=== PATIENT | female | born 1940 ===

== ENCOUNTER 2017-12-10 20:30 | Inpatient (IN) ==
[2017-12-10] MEDS: SODIUM CHLORIDE 0.9% 1,000 ML IV SCH (23:00)
[2017-12-10] MEDS ORDERED: ACETAMINOPHEN 325 MG TABLET PO PRN (23:29)
[2017-12-10] MEDS ORDERED: GLUCAGON 1 MG VIAL IM PRN ×2 (23:29→23:46)
[2017-12-10] MEDS ORDERED: DEXTROSE 50% 25 GM/50 ML VIAL IV PRN (23:46)
[2017-12-11 01:51] LABS: Apearance,Urine CLOUDY (Clear); Bacteria,Urine Many /HPF (Few); Bilirubin,Urine Negative (Negative); Blood, Urine Small mg/dL (Negative); Glucose,Urine (UA) Negative (Negative); Ketones,Urine Negative (Negative); Mucus,Urine Occasional /LPF (Occasional); Nitrite,Urine Negative (Negative); Protein,Urine 100 MG/DL; RBC,Urine 8 /HPF (0-4); Squamous Epithelial Cell,Urine Occasional /HPF (0-10); Urine Color Red (Yellow); Urine Specific Gravity 1.008 (1.001-1.035); Urine Urobilinogen < 2.0 EU/DL (0.2-1.0); WBC,Urine 47 /HPF (0-6)
[2017-12-11] MEDS ORDERED: MORPHINE 4 MG/1 ML VIAL IV PRN (03:20)
[2017-12-11] MEDS: LEVOTHYROXINE 50 MCG TABLET PO SCH (06:04)
[2017-12-11 06:06] LABS: Calcium 7.7 MG/DL (8.5-10.1); Osmolality,Calculated 295.7 MOS/KG (273-304); Potassium 4.3 MMOL/L (3.5-5.1)
[2017-12-11 06:19] LABS: Basophils % 0.2 % (0.0-0.8); Eosinophils % 0.1 % (0.00-10.9); Hematocrit 35.8 VOL% (35.7-47.0); Immature Granulocytes % 2.1 %; Immature Granulocytes Absolute 0.18 #; Lymphocytes # 0.4 10*3/uL (1.4-4.0); Mean Corpuscular HGB Conc 33.2 GM/DL (32-36); Mean Corpuscular Hemoglobin 30 PG (27-34); Mean Corpuscular Volume 88.6 FL (87-102); Mean Platelet Volume 11.2 FL (9.6-12.0); Monocytes # 0.2 10*3/uL (0.11-0.8); Monocytes % 2.2 % (1.7-12.7); Neutrophils # 7.7 10*3/uL (1.4-7.4); Neutrophils % 90.4 % (38.7-73.9); Platelet Count 107 T/CUMM (130-400); Red Blood Count 4.04 MC/CUMM (3.8-5.5); White Blood Count 8.5 T/CUMM (4-12)
[2017-12-11 06:20] LABS: Hemoglobin 11.9 GM/DL (12.0-16.0)
[2017-12-11 06:26] LABS: Hypochromasia 1+; Platelet Estimate Decreased
[2017-12-11] MEDS: DEXTROSE 50% 25 GM/50 ML VIAL IV PRN (08:25)
[2017-12-11] MEDS: INSULIN REGULAR 100 UNIT/ML SUBCUT SCH ×4 (08:27→20:24)
[2017-12-11] MEDS: SODIUM CHLORIDE 0.9% 1,000 ML IV SCH (08:28)
[2017-12-11] MEDS ORDERED: GABAPENTIN 300 MG CAPSULE PO SCH (09:00)
[2017-12-11] MEDS: PANTOPRAZOLE 40 MG TABLET PO SCH (10:40)
[2017-12-11] MEDS: METOPROLOL SUCCINATE XL 50 MG TABLET PO SCH (10:40)
[2017-12-11] MEDS: amLODIPine 10 MG TABLET PO SCH (10:41)
[2017-12-11] MEDS: ENOXAPARIN 30 MG/0.3 ML SYRINGE SUBCUT SCH (10:41)
[2017-12-11] MEDS: CALCIUM (CARBONATE)/VITAMIN D 600 MG-400 UNIT TABLET PO SCH ×2 (10:41→20:14)
[2017-12-11] MEDS ORDERED: hydrALAZINE 20 MG/1 ML VIAL IV PRN (10:55)
[2017-12-11 11:52] LABS: Creatinine,Urine Random < 13 MG/DL; Total Protein,Urine Random 116 MG/DL; Urea Nitrogen, Urine Random 202 MG/DL
[2017-12-11] MEDS: cefTRIAXone 1,000 MG in SYRINGE 1 EACH IV SCH (11:56)
[2017-12-11] MEDS: ZINC OXIDE PASTE 113 GM TUBE TOP SCH ×2 (16:49→20:14)
[2017-12-11] MEDS: DONEPEZIL 10 MG TABLET PO SCH (20:14)
[2017-12-12] MEDS: SODIUM CHLORIDE 0.9% 1,000 ML IV SCH (03:25)
[2017-12-12] MEDS: LEVOTHYROXINE 50 MCG TABLET PO SCH (05:33)
[2017-12-12] MEDS: INSULIN REGULAR 100 UNIT/ML SUBCUT SCH ×4 (08:48→21:10)
[2017-12-12] MEDS: PANTOPRAZOLE 40 MG TABLET PO SCH (08:49)
[2017-12-12] MEDS: CALCIUM (CARBONATE)/VITAMIN D 600 MG-400 UNIT TABLET PO SCH ×2 (08:49→21:10)
[2017-12-12] MEDS: METOPROLOL SUCCINATE XL 50 MG TABLET PO SCH (08:49)
[2017-12-12] MEDS: amLODIPine 10 MG TABLET PO SCH (08:49)
[2017-12-12] MEDS: ENOXAPARIN 30 MG/0.3 ML SYRINGE SUBCUT SCH (08:49)
[2017-12-12] MEDS: ZINC OXIDE PASTE 113 GM TUBE TOP SCH ×2 (08:50→21:10)
[2017-12-12] MEDS: ONDANSETRON 4 MG/2 ML VIAL IV PRN ×2 (10:46→17:17)
[2017-12-12] MEDS: cefTRIAXone 1,000 MG in SYRINGE 1 EACH IV SCH (12:44)
[2017-12-12] MEDS: DONEPEZIL 10 MG TABLET PO SCH (21:10)
[2017-12-13] MEDS: SODIUM CHLORIDE 0.9% 1,000 ML IV SCH ×2 (00:33→07:21)
[2017-12-13 05:04] LABS: Albumin 1.7 G/DL (3.4-5.0); Calcium 6.9 MG/DL (8.5-10.1); Potassium 4.7 MMOL/L (3.5-5.1)
[2017-12-13 05:44] LABS: Basophils % 0.3 % (0.0-0.8); Eosinophils % 0.2 % (0.00-10.9); Hematocrit 33.3 VOL% (35.7-47.0); Hemoglobin 10.9 GM/DL (12.0-16.0); Immature Granulocytes % 2.4 %; Immature Granulocytes Absolute 0.35 #; Lymphocytes # 0.6 10*3/uL (1.4-4.0); Lymphocytes % 4.1 % (21.3-54.2); Mean Corpuscular HGB Conc 32.7 GM/DL (32-36); Mean Corpuscular Hemoglobin 30 PG (27-34); Mean Corpuscular Volume 91.2 FL (87-102); Mean Platelet Volume 11.5 FL (9.6-12.0); Monocytes # 0.3 10*3/uL (0.11-0.8); Monocytes % 2.3 % (1.7-12.7); NRBC # 0.04 10*3/uL; Neutrophils # 13.1 10*3/uL (1.4-7.4); Neutrophils % 90.7 % (38.7-73.9); Platelet Count 86 T/CUMM (130-400); Red Blood Count 3.65 MC/CUMM (3.8-5.5); Red Cell Distribution Width 16.9 % (9.3-17.3); White Blood Count 14.5 T/CUMM (4-12)
[2017-12-13] MEDS: LEVOTHYROXINE 50 MCG TABLET PO SCH (07:10)
[2017-12-13] MEDS: DEXTROSE 50% 25 GM/50 ML VIAL IV PRN ×2 (07:26→12:06)
[2017-12-13 07:48] LABS: Band Neutrophils 7 % (0-10); Lymphocytes 5 % (20-55); Metamyelocytes 2 %; Segmented Neutrophils 84 % (50-85)
[2017-12-13 07:49] LABS: Platelet Estimate Decreased; Total Cells Counted 100
[2017-12-13] MEDS: CALCIUM (CARBONATE)/VITAMIN D 600 MG-400 UNIT TABLET PO SCH ×2 (09:24→20:43)
[2017-12-13] MEDS: amLODIPine 10 MG TABLET PO SCH (09:24)
[2017-12-13] MEDS: ENOXAPARIN 30 MG/0.3 ML SYRINGE SUBCUT SCH (09:24)
[2017-12-13] MEDS: METOPROLOL SUCCINATE XL 50 MG TABLET PO SCH (09:24)
[2017-12-13] MEDS: PANTOPRAZOLE 40 MG TABLET PO SCH (09:24)
[2017-12-13] MEDS: INSULIN REGULAR 100 UNIT/ML SUBCUT SCH ×4 (09:25→20:43)
[2017-12-13] MEDS: ZINC OXIDE PASTE 113 GM TUBE TOP SCH ×2 (09:25→20:43)
[2017-12-13] MEDS: cefTRIAXone 1,000 MG in SYRINGE 1 EACH IV SCH (12:07)
[2017-12-13] MEDS: DEXTROSE 5% NACL 0.9% 1,000 ML IV SCH (16:00)
[2017-12-13] MEDS: DONEPEZIL 10 MG TABLET PO SCH (20:42)
[2017-12-14 04:21] LABS: Basophils % 0.2 % (0.0-0.8); Eosinophils % 0.2 % (0.00-10.9); Hematocrit 25.7 VOL% (35.7-47.0); Hemoglobin 9.8 GM/DL (12.0-16.0); Immature Granulocytes % 4.1 %; Immature Granulocytes Absolute 0.41 #; Lymphocytes # 0.6 10*3/uL (1.4-4.0); Lymphocytes % 5.6 % (21.3-54.2); Mean Corpuscular HGB Conc 38.1 GM/DL (32-36); Mean Corpuscular Hemoglobin 40 PG (27-34); Mean Corpuscular Volume 105.3 FL (87-102); Mean Platelet Volume 11.5 FL (9.6-12.0); Monocytes # 0.4 10*3/uL (0.11-0.8); NRBC # 0.02 10*3/uL; Neutrophils # 8.5 10*3/uL (1.4-7.4); Neutrophils % 85.9 % (38.7-73.9); Red Blood Count 2.44 MC/CUMM (3.8-5.5); Red Cell Distribution Width 23.7 % (9.3-17.3); White Blood Count 9.9 T/CUMM (4-12)
[2017-12-14 04:44] LABS: Albumin 1.5 G/DL (3.4-5.0); Calcium 7.3 MG/DL (8.5-10.1); Osmolality,Calculated 310.8 MOS/KG (273-304); Potassium 4.8 MMOL/L (3.5-5.1)
[2017-12-14 05:05] LABS: Platelet Count 70 T/CUMM (130-400)
[2017-12-14] MEDS: DEXTROSE 5% NACL 0.9% 1,000 ML IV SCH (06:00)
[2017-12-14] MEDS: LEVOTHYROXINE 50 MCG TABLET PO SCH (06:30)
[2017-12-14] MEDS: ENOXAPARIN 30 MG/0.3 ML SYRINGE SUBCUT SCH (09:01)
[2017-12-14] MEDS: CALCIUM (CARBONATE)/VITAMIN D 600 MG-400 UNIT TABLET PO SCH ×2 (09:02→21:17)
[2017-12-14] MEDS: ZINC OXIDE PASTE 113 GM TUBE TOP SCH ×2 (09:02→21:18)
[2017-12-14] MEDS: amLODIPine 10 MG TABLET PO SCH (09:02)
[2017-12-14] MEDS: PANTOPRAZOLE 40 MG TABLET PO SCH (09:02)
[2017-12-14] MEDS: INSULIN REGULAR 100 UNIT/ML SUBCUT SCH ×4 (09:02→21:18)
[2017-12-14] MEDS: METOPROLOL SUCCINATE XL 50 MG TABLET PO SCH (09:02)
[2017-12-14 09:24] LABS: Lymphocytes 4 % (20-55); Platelet Estimate Decreased; Polychromasia Slight; Segmented Neutrophils 92 % (50-85); Total Cells Counted 100
[2017-12-14] MEDS: cefTRIAXone 1,000 MG in SYRINGE 1 EACH IV SCH (12:01)
[2017-12-14] MEDS: PIPERACILLIN/TAZOBACTAM 3,375 MG in SODIUM CHLORIDE 0.9% 100 ML IV SCH (14:54)
[2017-12-14] MEDS: DONEPEZIL 10 MG TABLET PO SCH (21:18)
[2017-12-15] MEDS: DEXTROSE 5% NACL 0.9% 1,000 ML IV SCH ×2 (00:11→11:32)
[2017-12-15] MEDS: PIPERACILLIN/TAZOBACTAM 3,375 MG in SODIUM CHLORIDE 0.9% 100 ML IV SCH (00:45)
[2017-12-15 04:40] LABS: Albumin 1.5 G/DL (3.4-5.0); Osmolality,Calculated 308.7 MOS/KG (273-304); Potassium 4.5 MMOL/L (3.5-5.1)
[2017-12-15 05:25] LABS: Basophils % 0.3 % (0.0-0.8); Eosinophils % 0.3 % (0.00-10.9); Immature Granulocytes % 3.7 %; Immature Granulocytes Absolute 0.57 #; Lymphocytes # 0.8 10*3/uL (1.4-4.0); Lymphocytes % 5.4 % (21.3-54.2); Mean Corpuscular HGB Conc 32.1 GM/DL (32-36); Mean Corpuscular Hemoglobin 30 PG (27-34); Mean Corpuscular Volume 93.4 FL (87-102); Mean Platelet Volume 11.5 FL (9.6-12.0); Monocytes # 0.4 10*3/uL (0.11-0.8); Monocytes % 2.3 % (1.7-12.7); NRBC # 0.02 10*3/uL; Neutrophils # 13.5 10*3/uL (1.4-7.4); Platelet Count 73 T/CUMM (130-400); Red Blood Count 3.64 MC/CUMM (3.8-5.5); Red Cell Distribution Width 17.3 % (9.3-17.3); White Blood Count 15.3 T/CUMM (4-12)
[2017-12-15 05:26] LABS: Hemoglobin 10.9 GM/DL (12.0-16.0)
[2017-12-15 05:35] LABS: Hypochromasia 1+; Lymphocytes 5 % (20-55); Platelet Estimate Decreased; Segmented Neutrophils 93 % (50-85); Total Cells Counted 100
[2017-12-15] MEDS: LEVOTHYROXINE 50 MCG TABLET PO SCH (06:10)
[2017-12-15] MEDS: INSULIN REGULAR 100 UNIT/ML SUBCUT SCH ×4 (08:27→21:19)
[2017-12-15] MEDS ORDERED: MEROPENEM 500 MG in SYRINGE 1 EACH IV SCH (11:30)
[2017-12-15] MEDS: DEXTROSE 5% NACL 0.45% 1,000 ML IV SCH ×2 (12:27→22:16)
[2017-12-15] MEDS: ENOXAPARIN 30 MG/0.3 ML SYRINGE SUBCUT SCH (12:28)
[2017-12-15] MEDS: CALCIUM (CARBONATE)/VITAMIN D 600 MG-400 UNIT TABLET PO SCH ×3 (12:29→21:18)
[2017-12-15] MEDS: METOPROLOL SUCCINATE XL 50 MG TABLET PO SCH (12:29)
[2017-12-15] MEDS: PANTOPRAZOLE 40 MG TABLET PO SCH (12:29)
[2017-12-15] MEDS: amLODIPine 10 MG TABLET PO SCH (12:29)
[2017-12-15] MEDS: ZINC OXIDE PASTE 113 GM TUBE TOP SCH ×2 (12:30→21:20)
[2017-12-15] MEDS: ERTAPENEM 500 MG in SODIUM CHLORIDE 0.9% 100 ML IV SCH (14:12)
[2017-12-15] MEDS: DONEPEZIL 10 MG TABLET PO SCH ×2 (21:17→21:20)
[2017-12-16] MEDS: LEVOTHYROXINE 50 MCG TABLET PO SCH (06:34)
[2017-12-16] MEDS: INSULIN REGULAR 100 UNIT/ML SUBCUT SCH ×4 (07:44→21:20)
[2017-12-16 07:58] LABS: Osmolality,Calculated 313.7 MOS/KG (273-304)
[2017-12-16 08:35] LABS: Hematocrit 40.7 VOL% (35.7-47.0); Lymphocytes % 4.4 % (21.3-54.2); Mean Corpuscular HGB Conc 32.2 GM/DL (32-36); Mean Corpuscular Hemoglobin 30 PG (27-34); Mean Corpuscular Volume 93.8 FL (87-102); Mean Platelet Volume 12.2 FL (9.6-12.0); Neutrophils % 89.4 % (38.7-73.9); Platelet Count 77 T/CUMM (130-400); Red Blood Count 4.34 MC/CUMM (3.8-5.5); Red Cell Distribution Width 17.4 % (9.3-17.3)
[2017-12-16 08:36] LABS: Basophils # 0.1 10*3/uL (0.0-0.2); Basophils % 0.4 % (0.0-0.8); Eosinophils # 0.1 10*3/uL (0.0-0.87); Eosinophils % 0.3 % (0.00-10.9); Immature Granulocytes % 3.5 %; Immature Granulocytes Absolute 0.78 #; Monocytes # 0.4 10*3/uL (0.11-0.8); Neutrophils # 20.1 10*3/uL (1.4-7.4)
[2017-12-16 08:37] LABS: Hemoglobin 13.1 GM/DL (12.0-16.0); White Blood Count 22.4 T/CUMM (4-12)
[2017-12-16 08:58] LABS: Band Neutrophils 1 % (0-10); Burr Cells Slight; Lymphocytes 4 % (20-55); Ovalocytes Slight; Platelet Estimate Decreased; Segmented Neutrophils 94 % (50-85); Total Cells Counted 100
[2017-12-16] MEDS: ENOXAPARIN 30 MG/0.3 ML SYRINGE SUBCUT SCH (09:16)
[2017-12-16] MEDS: CALCIUM (CARBONATE)/VITAMIN D 600 MG-400 UNIT TABLET PO SCH ×2 (09:19→21:20)
[2017-12-16] MEDS: PANTOPRAZOLE 40 MG TABLET PO SCH (09:19)
[2017-12-16] MEDS: ZINC OXIDE PASTE 113 GM TUBE TOP SCH ×2 (09:19→21:22)
[2017-12-16] MEDS: METOPROLOL SUCCINATE XL 50 MG TABLET PO SCH (09:19)
[2017-12-16] MEDS: amLODIPine 10 MG TABLET PO SCH (09:19)
[2017-12-16] MEDS: ERTAPENEM 500 MG in SODIUM CHLORIDE 0.9% 100 ML IV SCH (14:48)
[2017-12-16] MEDS: DEXTROSE 5% NACL 0.45% 1,000 ML IV SCH (18:02)
[2017-12-16] MEDS: DONEPEZIL 10 MG TABLET PO SCH (21:20)
[2017-12-17] MEDS: DEXTROSE 5% NACL 0.45% 1,000 ML IV SCH ×2 (01:24→18:01)
[2017-12-17] MEDS: LEVOTHYROXINE 50 MCG TABLET PO SCH (06:10)
[2017-12-17 06:18] LABS: Calcium 7.8 MG/DL (8.5-10.1); Osmolality,Calculated 310.8 MOS/KG (273-304); Potassium 3.8 MMOL/L (3.5-5.1)
[2017-12-17 06:22] LABS: Basophils # 0.1 10*3/uL (0.0-0.2); Basophils % 0.3 % (0.0-0.8); Eosinophils # 0.1 10*3/uL (0.0-0.87); Eosinophils % 0.5 % (0.00-10.9); Hematocrit 34.2 VOL% (35.7-47.0); Hemoglobin 11.2 GM/DL (12.0-16.0); Immature Granulocytes % 2.9 %; Immature Granulocytes Absolute 0.52 #; Lymphocytes # 0.7 10*3/uL (1.4-4.0); Lymphocytes % 3.6 % (21.3-54.2); Mean Corpuscular HGB Conc 32.7 GM/DL (32-36); Mean Corpuscular Hemoglobin 30 PG (27-34); Mean Corpuscular Volume 92.9 FL (87-102); Mean Platelet Volume 12.3 FL (9.6-12.0); Monocytes # 0.4 10*3/uL (0.11-0.8); Neutrophils # 16.5 10*3/uL (1.4-7.4); Neutrophils % 90.7 % (38.7-73.9); Platelet Count 56 T/CUMM (130-400); Red Blood Count 3.68 MC/CUMM (3.8-5.5); Red Cell Distribution Width 17.6 % (9.3-17.3); White Blood Count 18.2 T/CUMM (4-12)
[2017-12-17 06:35] LABS: Band Neutrophils 2 % (0-10); Eosinophils 1 % (0-10); Metamyelocytes 2 %; Platelet Estimate Decreased; Segmented Neutrophils 93 % (50-85); Total Cells Counted 100
[2017-12-17 06:36] LABS: Anisocytosis 1+; Burr Cells Few; Macrocytosis 1+; Polychromasia 1+
[2017-12-17] MEDS: INSULIN REGULAR 100 UNIT/ML SUBCUT SCH ×4 (09:29→21:03)
[2017-12-17] MEDS ORDERED: BISACODYL 10 MG SUPP RECTAL PRN (10:03)
[2017-12-17] MEDS: CALCIUM (CARBONATE)/VITAMIN D 600 MG-400 UNIT TABLET PO SCH ×2 (10:03→21:03)
[2017-12-17] MEDS: PANTOPRAZOLE 40 MG TABLET PO SCH (10:04)
[2017-12-17] MEDS: amLODIPine 10 MG TABLET PO SCH (10:04)
[2017-12-17] MEDS: METOPROLOL SUCCINATE XL 50 MG TABLET PO SCH (10:04)
[2017-12-17] MEDS: ENOXAPARIN 30 MG/0.3 ML SYRINGE SUBCUT SCH (10:04)
[2017-12-17] MEDS ORDERED: FUROSEMIDE 40 MG/4 ML VIAL IV ONE (10:40)
[2017-12-17] MEDS: ZINC OXIDE PASTE 113 GM TUBE TOP SCH ×2 (11:35→21:04)
[2017-12-17] MEDS: ERTAPENEM 500 MG in SODIUM CHLORIDE 0.9% 100 ML IV SCH (12:10)
[2017-12-17] MEDS: DONEPEZIL 10 MG TABLET PO SCH (21:04)
[2017-12-18] MEDS: DEXTROSE 5% NACL 0.45% 1,000 ML IV SCH ×2 (03:13→19:07)
[2017-12-18] MEDS: LEVOTHYROXINE 50 MCG TABLET PO SCH (06:07)
[2017-12-18 07:04] LABS: Basophils % 0.2 % (0.0-0.8); Eosinophils # 0.2 10*3/uL (0.0-0.87); Eosinophils % 1.2 % (0.00-10.9); Hematocrit 31.6 VOL% (35.7-47.0); Immature Granulocytes % 2.3 %; Immature Granulocytes Absolute 0.35 #; Lymphocytes # 0.5 10*3/uL (1.4-4.0); Lymphocytes % 3.6 % (21.3-54.2); Mean Corpuscular HGB Conc 31.6 GM/DL (32-36); Mean Corpuscular Hemoglobin 30 PG (27-34); Mean Corpuscular Volume 95.2 FL (87-102); Mean Platelet Volume 12.8 FL (9.6-12.0); Monocytes # 0.4 10*3/uL (0.11-0.8); Monocytes % 2.5 % (1.7-12.7); NRBC # 0.02 10*3/uL; Neutrophils # 13.7 10*3/uL (1.4-7.4); Neutrophils % 90.2 % (38.7-73.9); Platelet Count 54 T/CUMM (130-400); Red Blood Count 3.32 MC/CUMM (3.8-5.5); Red Cell Distribution Width 17.6 % (9.3-17.3); White Blood Count 15.2 T/CUMM (4-12)
[2017-12-18 07:14] LABS: Eosinophils 1 % (0-10); Hypochromasia 1+; Lymphocytes 4 % (20-55); Ovalocytes Slight; Platelet Estimate Decreased; Segmented Neutrophils 93 % (50-85); Total Cells Counted 100
[2017-12-18 07:15] LABS: Macrocytosis Slight
[2017-12-18 07:35] LABS: Calcium 7.6 MG/DL (8.5-10.1); Potassium 3.9 MMOL/L (3.5-5.1)
[2017-12-18] MEDS: INSULIN REGULAR 100 UNIT/ML SUBCUT SCH ×3 (09:16→16:30)
[2017-12-18] MEDS: CALCIUM (CARBONATE)/VITAMIN D 600 MG-400 UNIT TABLET PO SCH (09:16)
[2017-12-18] MEDS: METOPROLOL SUCCINATE XL 50 MG TABLET PO SCH (09:17)
[2017-12-18] MEDS: PANTOPRAZOLE 40 MG TABLET PO SCH (09:17)
[2017-12-18] MEDS: amLODIPine 10 MG TABLET PO SCH (09:17)
[2017-12-18] MEDS: ZINC OXIDE PASTE 113 GM TUBE TOP SCH (09:18)
[2017-12-18] MEDS: ENOXAPARIN 30 MG/0.3 ML SYRINGE SUBCUT SCH (11:15)
[2017-12-18] MEDS: ERTAPENEM 500 MG in SODIUM CHLORIDE 0.9% 100 ML IV SCH (12:10)
[2017-12-18] MEDS ORDERED: fentaNYL 12 MCG/HR PATCH TRANSDERM SCH (13:30)
[2017-12-18 16:54] VITALS: BP 115/77
== END 2017-12-18 23:45 | disposition expired | DRG 682 ==
LOC: N.3E 21:49 → SUATTDRO 21:49
PROVIDERS: ADMIT Internal Medicine; ATTEND Internal Medicine